=== PATIENT | female | born 1995 | race Caucasian/White ===

== ENCOUNTER 2023-12-30 09:24 | Outpatient (CLI) | payer BC, SELFPAY ==
[2023-12-30 13:02] LABS: Basophils Percent Auto 0.3 % (0.2-1.2); Eosinophils Percent Auto 0.5 % (0-4.4); Hematocrit 37.4 % (37.0-47.0); Hemoglobin 12.3 g/dL (12.0-15.0); Immature Granulocyte Absolute 0.01 K/mm3 (0.00-0.031); Immature Granulocyte Percent A 0.2 % (0-0.5); Lymphocytes Absolute Auto 2.37 K/mm3 (0.9-3.2); Lymphocytes Percent Auto 40.2 % (18.3-44.2); Mean Corpuscular HGB Conc 32.9 g/dl (32-36); Mean Corpuscular Hemoglobin 30.4 pg (26-34); Mean Corpuscular Volume 92.3 fl (80-100); Mean Platelet Volume 10.5 fl (7.4-10.4); Monocytes Absolute Auto 0.4 K/mm3 (0.1-0.6); Monocytes Percent Auto 6.5 % (2.6-8.5); Neutrophils Absolute Auto 3.1 K/mm3 (1.3-6.7); Neutrophils Percent Auto 52.3 % (45.5-73.1); Platelet Count Result 250 k/mm3 (150-375); Red Blood Count 4.05 M/mm3 (4.2-5.4); Red Cell Distribution Width 12.1 % (11.5-14.5); White Blood Count 5.9 K/mm3 (4.5-10.0)
[2023-12-30 13:19] LABS: Alanine Aminotransferase 25 U/L (6-35); Albumin Level 4.2 g/dL (3.5-5.1); Alkaline Phosphatase 67 U/L (38-126); Anion Gap 9 mmol/L (4-12); Aspartate Amino Transferase 34 U/L (14-36); Bilirubin,Total 0.6 mg/dL (0.2-1.3); Blood Urea Nitrogen 9 mg/dL (7-17); Calcium 9.3 mg/dL (8.4-10.2); Carbon Dioxide 25 mmol/L (22-30); Chloride 102 mmol/L (98-107); Estimated Glomerular Filt Rate > 60; Glucose 105 mg/dL (65-110); Potassium 4.2 mmol/L (3.4-5.0); Sodium 136 mmol/L (137-145)
== END 2023-12-30 09:25 | disposition home or self-care (01) ==
LOC: ANHGOSHLAB 09:25
PROVIDERS: PCP Family Medicine; Visit Provider Family Medicine
DX: R53.83 Other fatigue (principal); Z13.29 Encounter for screening for other suspected endocrine disorder; Z13.228 Encounter for screening for other metabolic disorders
CPT/HCPCS: 36415; 80053; 84443; 85025

== ENCOUNTER 2025-04-29 15:23 | Emergency (ER) | payer OTHER, SELFPAY ==
--- NOTE | 2025-04-29 15:24 | ED_ITS ---
HPI - Ear Problem General Chief complaint: Ear Stated complaint: LT Ear Pain Time Seen by Provider: 04/29/25 15:23 Source: patient Mode of arrival: ambulatory Limitations: no limitations History of Present Illness HPI Narrative: Ida is a 29-year-old female patient presenting to the clinic today with complaints of left ear and left jaw pain x1 week. She reports pain is a 3/10 currently. Has been taking ibuprofen. States pain is often worse when she swallows on the left side of her throat. Denies any fevers, chills, body aches. Has history of TMJ issues in the past. States her symptoms do not normally last this long. No injury to her jaw. States it feels like her left jaw is bruised. Denies any dental pain. Related Data Home Medications ?Medication ?Instructions ?Recorded ?Confirmed ?Last Taken ?Type dextroamphetamine-amphetamine ER PO 12/22/23 02/12/25 Unknown History 20 mg 24hr capsule,extend release sertraline 100 mg tablet (Zoloft) 100 mg PO DAILY 01/2802/12/25 Unknown History Allergies Allergy/AdvReac Type Severity Reaction Status Date / Time No Known Allergies Allergy Verified 04/29/25 15:32 Review of Systems Review of Systems: Pertinent positives per HPI. Patient denies any fever, chills, rash, headache, visual changes, dizziness, cough, shortness of breath, chest pain, palpitations, nausea, vomiting, diarrhea, constipation, abdominal pain, or any urinary issues. PMFSH Past Medical History Medical History Anxiety ADHD Surgical History Surgical History Hx of tonsillectomy Family History Family History Other Diabetes mellitus Social History Social History Smoking status: Never smoker Alcohol intake: current Substance use: never Substance use type: does not use Lack of Transportation: No Lack of Food: Never True Current Housing: I Have Housing Concerned About Future Housing: No Difficulty Paying Gas/Electric Bills: No Difficulty Paying for Meds: No Currently Unemployed: No Education: Master's Degree or Higher Difficulty w/ Childcare or Family Care: No Living arrangements: with family Additional living arrangements comments: Occupation/Education: occupation 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 There is no relevant family history pertinent to the patient complaint. Exam Narrative: General: Well-developed, well nourished, in no apparent distress Head: Normocephalic, atraumatic Eyes: Pupils equally round and reactive to light bilaterally, EOM intact, sclera and conjunctive clear, no discharge, lids normal Ears: TMs intact, mild bulging, clear, ear canals ceruminous, tenderness to palpation over the left eustachian tube, no drainage, grossly hearing normal. Nose: Nares patent, no discharge, no inflammation, no sinus tenderness. Mouth: Oral pharynx without lesions or masses, good dentition, MMM. Tenderness to palpation over the left TMJ Neck: Supple, trachea midline, no enlargement of anterior or posterior cervical nodes, no thyroid masses or goiter palpable. Cardio: Regular rate and rhythm, s1 and s2 normal, no murmur appreciated. Resp: Clear to auscultation bilaterally, no rhonchi, rales, wheezing or rubs MDM MDM Narrative Medical decision making narrative: At the time of visit patient is resting comfortably on the exam table. Patient appears to be nontoxic. Complaints of left ear and left jaw pain x1 week. She reports pain is a 3/10 currently. Has been taking ibuprofen. States pain is often worse when she swallows on the left side of her throat. Denies any fevers, chills, body aches. Has history of TMJ issues in the past. States her symptoms do not normally last this long. No injury to her jaw. States it feels like her left jaw is bruised. Denies any dental pain. On exam ear canals are ceruminous but I am able to see the TMs and they appear clear with mild bulging, tenderness to palpation over the left eustachian tube, tenderness to palpation over the left TMJ region, no crepitus palpable with open and closing of the jaw, nares patent without drainage, oropharynx normal, lung sounds are clear, heart rates regular rate and rhythm. Plan: I suspect patient has jaw pain possibly due to arthralgia and left ear pain likely due to eustachian tube dysfunction. Will send in prescription for Medrol Dosepak. Other differentials would include trigeminal neuralgia, dental infection, serous otitis/otitis media. Supportive measures were discussed with the patient and they voiced understanding discharge instructions and agrees to treatment plan. Return precautions reviewed Differential Diagnosis Differential Diagnosis: Otitis media, otitis externa, eustachian tube dysfunction, cerumen impaction, upper respiratory infection, serous otitis, TMJ arthralgia, TMJ joint dysfunction, trigeminal neuralgia, parotitis Discharge Plan Discharge Clinical Impression: Jaw pain, Otalgia of left ear Patient Disposition: Home Condition: Stable Instructions: Antibiotic Form, Trigeminal Neuralgia (ED), Temporomandibular Disorder (ED), Earache (ED) Additional Instructions: Differential diagnosis include-eustachian tube dysfunction, TMJ arthralgia, or trigeminal neuralgia. No obvious sign of bacterial infection. Take prescription medications only as prescribed-Medrol Dosepak Increase fluids and stay well hydrated May take Tylenol or motrin as directed on bottle for pain/fever May use Flonase 1 spray in each nare daily May take OTC antihistamines such as Zyrtec or Claritin daily as directed on bottle Cepacol spray, cough drops, throat lozenges, warm tea with honey/lemon, gargle salt water to soothe throat Go to the ED if you develop a worsening in your condition- high fever not controlled by Tylenol or Motrin, dehydration, weakness, lethargy, shortness of breath, chest pain, or worsening of your present symptoms. Follow up with your PCP in 3-5 days if symptoms persist. Patient Language: Beninese Prescriptions: New methylprednisolone [Medrol (Michael)] 4 mg tablets,dose pack See Rx Instructions PO .COMPLEX Qty: 21 0RF Rx Instructions: orally per package directions No Action dextroamphetamine-amphetamine 20 mg capsule,extended release 24hr PO sertraline [Zoloft] 100 mg tablet 100 mg PO DAILY Follow-up/Referrals: UNKNOWN,DOCTOR [Non-Staff] Time of Disposition: 15:37 Quality NIHSS Nursing Documentation ED NIHSS nursing documentation: reviewed/agree
[2025-04-29 15:29] VITALS: BP 121/67; PULSE 83; RESP 18; TEMP 36.2; O2SAT 100
== END 2025-04-29 15:44 | disposition home or self-care (01) ==
PROVIDERS: Emergency Provider Nurse Practitioner Family
DX: R68.84 Jaw pain (principal); H92.02 Otalgia, left ear; F90.9 Attention-deficit hyperactivity disorder, unspecified type; F41.9 Anxiety disorder, unspecified
CPT/HCPCS: 99213; G0463